=== PATIENT | male | born 1995 | race African-American/Black ===

== ENCOUNTER 2022-07-28 19:53 | Emergency (ER) | payer OTHER ==
[2022-07-28] MEDS ORDERED: Lidocaine 1% PF 5 ML VIAL ONE (20:34)
== END 2022-07-28 21:11 | disposition home or self-care (01) ==
LOC: ERS 19:53
DX: S63.290A Dislocation of distal interphalangeal joint of right index finger, initial encounter (principal); Y93.67 Activity, basketball
CPT/HCPCS: 26770